=== PATIENT | male | born 1950 | race Two or more races ===

== ENCOUNTER → 2017-02-26 | Outpatient (CLI) | payer OTHER ==
[2017-02-26 08:40] LABS: microscopic required? NO
[2017-02-26 09:31] LABS: UA SPECIFIC GRAVITY >=1.030 (1.005-1.035); urine erythrocyte NEGATIVE (NEGATIVE)
[2017-02-26 09:57] LABS: ALBUMIN 3.7 g/dL (3.4-5.0); ALKALINE PHOSPHATASE 56 U/L (46-116); ALT/SGPT 28 U/L (16-63); AST/SGOT 16 U/L (15-37); BILIRUBIN TOTAL 0.5 mg/dL (0.20-1.00); CALCIUM 8.9 mg/dL (8.5-10.1); CHLORIDE SERUM 105 mmol/L (98-107); CHOLESTEROL 187 mg/dL (<200); CHOLESTEROL/HDL RATIO 3.6; CREATININE SERUM 1.1 mg/dL (0.7-1.3); FREE T4 0.78 ng/dL (0.76-1.46); GFR1 > 60 mL/min; GLUCOSE SERUM 118 mg/dL (74-106); HDL CHOLESTEROL 52 mg/dL (40-60); SODIUM SERUM 139 mmol/L (136-145); TOTAL PROTEIN, SERUM 7.4 g/dL (6.4-8.2); TRIGLYCERIDES 198 mg/dL (<150)
[2017-02-26 10:33] LABS: BASOPHIL % 0.7 % (0-2); PLATELET COUNT 293 x10^3mcL (130-400); RED CELL DISTRIBUTION WIDTH 12.8 % (11.5-14.5)
[2017-02-27 09:03] LABS: VITAMIN D 25-HYDROXY 11.3 ng/mL (30.0-100.0)
== END | disposition home or self-care (01) ==
LOC: LB 08:16
DX: Z00.00 Encounter for general adult medical examination without abnormal findings (principal)
CPT/HCPCS: 84153; 84439